=== PATIENT | male | born 1960 | race Caucasian/White ===

== ENCOUNTER 2016-08-22 13:12 | Emergency (ER) | payer BC ==
[2016-08-22] MEDS ORDERED: KETOROLAC TROMETHAMINE 60 MG/2 ML VIAL IM ONE ×2 (14:20→14:34)
--- NOTE | 2016-08-22 14:31 | ERNOTE ---
Upper Extremity HPI - Narrative Date of Service: 08/22/16 - General Extremities Pain Location: thumb: right Time Seen by Provider: 08/22/16 14:07 Source: patient Exam Limitations: no limitations - Immun/Allergies/Home Medications Immunizations: IMMUNIZATION HX Immunizations Up to Date Yes History of Influenza Vaccine Yes Hx Pneumococcal Vaccination No Allergies/Adverse Reactions: Allergies Allergy/AdvReac Type Severity Reaction Status Date / Time No Known Allergies Allergy Verified 08/22/16 13:46 Home Medications: HOME MEDICATIONS ARIPiprazole [Abilify] 5 mg PO DAILY 02/06/15 [Last Taken Unknown] Alprazolam [Alprazolam ER] 4 mg PO HS 02/06/15 [Last Taken Unknown] Desvenlafaxine Succinate [Pristiq] 150 mg PO DAILY 02/06/15 [Last Taken Unknown] Enalapril Maleate [Vasotec] 5 mg PO DAILY 02/06/15 [Last Taken Unknown] Fenofibrate,Micronized [Lofibra] 134 mg PO DAILY 02/06/15 [Last Taken Unknown] Glimepiride [Amaryl] 1 mg PO BID 02/06/15 [Last Taken Unknown] Levetiracetam [Keppra] 1,000 mg PO BID 02/06/15 [Last Taken Unknown] Naltrexone HCl [ReVia] 50 mg PO DAILY 02/06/15 [Last Taken Unknown] Omeprazole [Prilosec] 40 mg PO BID 02/06/15 [Last Taken Unknown] Sucralfate [Carafate] 1 gm PO BID 02/06/15 [Last Taken Unknown] Testosterone Cypionate [Depo-Testosterone] 100 mg IM Q1M 02/06/15 [Last Taken ] Trazodone HCl [Oleptro ER] 150 mg PO HS 02/06/15 [Last Taken Unknown] Rosuvastatin Calcium [Crestor] 20 mg PO DAILY 02/09/15 [Last Taken Unknown] Naproxen [Naprosyn] 500 mg PO BID PRN #60 tab 08/22/16 [Last Taken Unknown] - History of Present Illness Narrative: Pt. comes in with c/o R thumb pain after slamming it in the door of his truck. Pt. denies any SOB, CP, NVD, numbness, or tingling. Pt. denies any prehospital treatment, alleviating or aggravating factors. Review of Systems - Review of Systems Constitutional: Present: no symptoms reported. Absent: recent illness, fever, chills, malaise EYE: Present: no symptoms reported ENT: Present: no symptoms reported Respiratory: Present: no symptoms reported. Absent: shortness of breath, cough , wheezing Cardiology: Present: no symptoms reported. Absent: chest pain, palpitations, edema Gastrointestinal/Abdominal: Present: no symptoms reported Genitourinary: Present: no symptoms reported Musculoskeletal: Present: no symptoms reported. Absent: back pain, joint pain Skin: Present: change in hair/nails - nail discoloration. Absent: rash Neurological: Present: no symptoms reported Endocrine: Present: no symptoms reported All Other Systems: All systems neg except as marked - Patient's Past Medical History Patient History - Medical: Anxiety, Bipolar, Diabetes Type 2, Depression, GERD Patient History - Cardiac/Respiratory: No pertinent hx Patient History - Cancer: No Hx of Cancer Patient History - Surgical Procedures: Colonoscopy, Vasectomy Patient History - Other: None - Family History Mother Family History - Medical: Family History - Cardiac/Respiratory: Hypertension, Myocardial Infarction Father Family History - Medical: Family History - Cardiac/Respiratory: COPD - Social History Living Situations: home Abuse History: No History of abuse Psych History: Hx of Anxiety, Hx of Depression, Current tx/ever been on anti- depressants or anti-anxiety meds Smoking Status: Current every day smoker Have you smoked in the past 12 months: Yes Alcohol Use: occasionally Drug Use: none - Immunizations Immunizations Up to Date: Yes Hx Pneumococcal Vaccination: No History of Influenza Vaccine: Yes Physical Exam - Physical Exam General Appearance: Present: wd/wn, alert, no apparent distress Eye Exam: Normal inspection: bilateral, PERRL: bilateral, EOMI: bilateral Neck: Absent: lymphadenopathy (R), lymphadenopathy (L) Respiratory: Present: no respiratory distress, normal breath sounds, no accessory muscle use, chest nontender, lungs clear Cardiovascular/Chest: Present: regular rate, rhythm, no murmur, normal peripheral pulses Gastrointestinal/Abdominal: Present: normal bowel sounds, nontender, nondistended, soft, no organomegaly Back Exam: Present: normal inspection, normal range of motion, no CVA tenderness , no vertebral tenderness Extremity Exam: Present: normal range of motion, joint redness - R distal thumb , joint swelling - R thumb, other - nail hematoma R prox thumb nail Neurological Exam: Present: alert, oriented, normal mood/affect, no motor/ sensory deficits Skin Exam: Present: warm/dry. Absent: skin rash ED Progress - Date and Time Seen: Date and Time: 08/22/16 16:14 Discussed with Ventura garner and will place in finger splint and give anti- inflammatories and have follow up with orthopedics next week. - Vital Signs Patient's Vital Signs:: I have reviewed the patient's vital signs. Vital Signs: Vital Signs 08/22/16 13:41 Temperature 35.9 C L Pulse Rate 78 Respiratory 16 Rate Blood Pressure 178/97 O2 Sat by Pulse 98 Oximetry - X-Ray X-Ray #1 X-Ray: finger Interpretation: Reviewed by me X-ray Comments: R first digit distal phalynx avulsion fracture. - Progress/Reassessment Chief Complaint: Hand Injury/Pain Departure Clinical Impression: Avulsion fracture - Departure Disposition: Home self-care Condition: Good Instructions: Avulsion Fracture of the Hand Additional Instructions: Please follow up with orthopedics next week by calling to get appointment Referrals: Ventura Garner, PAC [[facility]] - Prescriptions: Naproxen [Naprosyn] 500 mg PO BID PRN #60 tab PRN Reason: Pain
--- OUTSIDE RECORDS SUMMARY | 2016-08-22 14:37 | XMS REPORT | Continuity of Care Document ---
:1960 Author Organization [facility] ([facility]) Address [address] [place] [address] Phone [phone] Care Team Providers Name Role Phone [phone], Need To Check Primary Care Provider Unavailable Source Comments This disclosure is being made pursuant to the Care Everywhere program, applicable federal and state laws, and may not contain all informaitonavailable regarding this patient.[facility] ([facility]) Active Allergies and Adverse Reactions No Known Allergies Current Medications Prescription Sig. Disp. Refills Start Date End Date Status [place]-3 Fatty Take 1,000 mg by Active Acids-Vitamin E (FISH mouth daily. OIL) 1,000 mg Cap multivitamin tablet Take 1 Tab by mouth Active daily. traZODone (DESYREL) 100 Take 100 mg by Active mg tablet mouth at bedtime. glipiZIDE (GLUCOTROL) 5 Take 5 mg by mouth Active mg tablet 2 times daily. fenofibrate 134 mg Take 134 mg by Active capsule mouth every morning before breakfast. rosuvastatin (CRESTOR) Take 20 mg by mouth Active 20 mg tablet daily. omeprazole (PRILOSEC) 20 Take 20 mg by mouth Active mg extended release daily. capsule desvenlafaxine (PRISTIQ) Take 50 mg by mouth Active 50 mg XR tablet daily. meloxicam (MOBIC) 7.5 mg Take 1 Tab by mouth 60 Tab 3 07/12/2010 Active tablet daily. 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 Pulse 69 05/23/2010 3:11 PM DOCUMENTATION WRITER Temperature 35.9 C (96.6 F) 05/23/2010 3:11 PM DOCUMENTATION WRITER Respiratory Rate - - Height 1.815 m (5' 11.46") 05/23/2010 3:11 PM DOCUMENTATION WRITER Weight 99.4 kg (219 lb 2.2 oz) 05/23/2010 3:11 PM DOCUMENTATION WRITER Body Mass Index 30.17 05/23/2010 3:11 PM DOCUMENTATION WRITER Oxygen Saturation - - Plan of Care Health Maintenance Due Date Last Done Comments HCV Screening 1960 Hepatitis B Vaccine (1 of 3 - Primary Series) 1960 Tdap Vaccine 1972 MMR Vaccine 09/19/1979 Td Vaccine 09/19/1979 Colonoscopy 2011 Prostate Cancer Screening 09/19/2011 Lipid Disorder Screening 01/07/2013 01/08/2008 Influenza Vaccine: Seasonal (#1) 01/17/2016 Results from Last 3 Months Not on file
[2016-08-22 16:58] VITALS: BP 148/74
== END 2016-08-22 16:38 | disposition home or self-care (01) ==
LOC: ER 13:12
PROC: 2W3JX1Z Immobilization of Right Finger using Splint (ICD-10-PCS; principal; 2016-08-22)
DX: S62.521A Displaced fracture of distal phalanx of right thumb, initial encounter for closed fracture (principal); X58.XXXA Exposure to other specified factors, initial encounter; Z72.0 Tobacco use; F41.8 Other specified anxiety disorders; E11.9 Type 2 diabetes mellitus without complications

== ENCOUNTER 2016-08-25 14:46 | Emergency (ER) | payer BC ==
[2016-08-25 15:08] VITALS: BP 188/92
--- NOTE | 2016-08-25 15:37 | ERNOTE ---
Upper Extremity HPI - Narrative Date of Service: 08/25/16 - General Extremities Pain Location: thumb: right Time Seen by Provider: 08/25/16 15:33 Source: patient Exam Limitations: no limitations - Immun/Allergies/Home Medications Immunizations: IMMUNIZATION HX Immunizations Up to Date Yes History of Influenza Vaccine Yes Hx Pneumococcal Vaccination No Allergies/Adverse Reactions: Allergies Allergy/AdvReac Type Severity Reaction Status Date / Time No Known Allergies Allergy Verified 08/25/16 15:20 Home Medications: HOME MEDICATIONS ARIPiprazole [Abilify] 5 mg PO DAILY 02/06/15 [Last Taken Unknown] Alprazolam [Alprazolam ER] 4 mg PO HS 02/06/15 [Last Taken Unknown] Desvenlafaxine Succinate [Pristiq] 150 mg PO DAILY 02/06/15 [Last Taken Unknown] Enalapril Maleate [Vasotec] 5 mg PO DAILY 02/06/15 [Last Taken Unknown] Fenofibrate,Micronized [Lofibra] 134 mg PO DAILY 02/06/15 [Last Taken Unknown] Glimepiride [Amaryl] 1 mg PO BID 02/06/15 [Last Taken Unknown] Levetiracetam [Keppra] 1,000 mg PO BID 02/06/15 [Last Taken Unknown] Naltrexone HCl [ReVia] 50 mg PO DAILY 02/06/15 [Last Taken Unknown] Omeprazole [Prilosec] 40 mg PO BID 02/06/15 [Last Taken Unknown] Sucralfate [Carafate] 1 gm PO BID 02/06/15 [Last Taken Unknown] Testosterone Cypionate [Depo-Testosterone] 100 mg IM Q1M 02/06/15 [Last Taken ] Trazodone HCl [Oleptro ER] 150 mg PO HS 02/06/15 [Last Taken Unknown] Rosuvastatin Calcium [Crestor] 20 mg PO DAILY 02/09/15 [Last Taken Unknown] Naproxen [Naprosyn] 500 mg PO BID PRN #60 tab 08/22/16 [Last Taken Unknown] Hydrocodone/Acetaminophen [Lortab 5-325 mg Tablet] 1 each PO QID PRN #14 tablet 08/25/16 [Last Taken Unknown] metFORMIN HCL [Glucophage] 1,000 mg PO BIDWM 08/25/16 [Last Taken Unknown] - History of Present Illness Narrative: 55-year-old white male returns to the ED because of continued right thumb pain and inability to perform work. Patient suffered a crush injury of his right thumb days ago. Was seen and evaluated at this department was diagnosed with fracture. Snoring a splint. 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 He has some pain and some impaired function of his right thumb due to wearing the splint. He is unable to perform his duties at work and therefore will need to be off work. Pain is [id number]. No numbness or tingling. Review of Systems - Review of Systems Constitutional: Present: no symptoms reported Respiratory: Present: no symptoms reported Cardiology: Present: no symptoms reported Musculoskeletal: Present: joint pain, joint swelling Skin: Present: no symptoms reported Neurological: Absent: weakness, numbness, tingling - Patient's Past Medical History Patient History - Medical: Anxiety, Bipolar, Diabetes Type 2, Depression, GERD Patient History - Cardiac/Respiratory: No pertinent hx Patient History - Cancer: No Hx of Cancer Patient History - Surgical Procedures: Colonoscopy, Vasectomy Patient History - Other: None - Family History Mother Family History - Medical: Family History - Cardiac/Respiratory: Hypertension, Myocardial Infarction Father Family History - Medical: Family History - Cardiac/Respiratory: COPD - Social History Living Situations: home Abuse History: No History of abuse Psych History: Hx of Anxiety, Hx of Depression, Current tx/ever been on anti- depressants or anti-anxiety meds Alcohol Use: occasionally Drug Use: none - Immunizations Immunizations Up to Date: Yes Hx Pneumococcal Vaccination: No History of Influenza Vaccine: Yes Physical Exam - Physical Exam General Appearance: Present: wd/wn, alert, no apparent distress Neck: Present: normal inspection Respiratory: Present: no respiratory distress Cardiovascular/Chest: Present: regular rate, rhythm Extremity Exam: Present: normal range of motion, other - the right distal thumb has some ecchymosis swelling and tenderness. It is Norvasc intact. There is a very small subungual hematoma but I do not think that I can drain. Neurological Exam: Present: alert, oriented, no motor/sensory deficits ED Progress - Vital Signs Patient's Vital Signs:: I have reviewed the patient's vital signs. Vital Signs: Vital Signs 08/25/16 15:02 Temperature 37.2 C Pulse Rate 72 Respiratory 16 Rate Blood Pressure 188/92 O2 Sat by Pulse 97 Oximetry - Progress/Reassessment Chief Complaint: Hand Injury/Pain Progress:: Unchanged Plan - Plan Plan: Work and follow-up with orthopedics next Sunday Departure Clinical Impression: Fracture of thumb, right, closed - Departure Disposition: Home self-care Condition: Stable Instructions: Thumb Fracture Additional Instructions: Follow-up with orthopedics as scheduled. Off work. Wear splint. Referrals: Jessica Leigh DO [Primary Care Provider] - Prescriptions: Hydrocodone/Acetaminophen [Lortab 5-325 mg Tablet] 1 each PO QID PRN #14 tablet PRN Reason: Pain
--- OUTSIDE RECORDS SUMMARY | 2016-08-25 16:34 | XMS REPORT | Continuity of Care Document ---
:1960 Author Organization [facility] ([facility]) Address [address] [place] [address] Phone [phone] Care Team Providers Name Role Phone [phone], Need To Check Primary Care Provider Unavailable Source Comments This disclosure is being made pursuant to the Care Everywhere program, applicable federal and state laws, and may not contain all informaitonavailable regarding this patient.[facility] ([facility]) Active Allergies and Adverse Reactions No Known Allergies Current Medications Prescription Sig. Disp. 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
== END 2016-08-25 15:50 | disposition home or self-care (01) ==
LOC: ER 14:46
DX: S62.521D Displaced fracture of distal phalanx of right thumb, subsequent encounter for fracture with routine healing (principal); X58.XXXD Exposure to other specified factors, subsequent encounter

== ENCOUNTER 2016-10-27 08:11 | Day surgery (SDC) | payer BC ==
--- OUTSIDE RECORDS SUMMARY | 2016-10-27 08:15 | XMS REPORT | Continuity of Care Document ---
:1960 Author Organization [facility] ([facility]) Address [address] [place] [address] Phone [phone] Care Team Providers Name Role Phone [phone], Need To Check Primary Care Provider Unavailable Source Comments This disclosure is being made pursuant to the Care Everywhere program, applicable federal and state laws, and may not contain all informaitonavailable regarding this patient.[facility] ([facility]) Active Allergies and Adverse Reactions No Known Allergies Current Medications Prescription Sig. Disp. Refills Start Date End Date Status [place]-3 Fatty Take 1,000 mg by Active Acids-Vitamin [...] Taken Blood Pressure 142/89 05/23/2010 3:11 PM PRODUCT SAFETY EXPERT Pulse 69 05/23/2010 3:11 PM PRODUCT SAFETY EXPERT Temperature 35.9 C (96.6 F) 05/23/2010 3:11 PM PRODUCT SAFETY EXPERT Respiratory Rate - - Height 1.815 m (5' 11.46") 05/23/2010 3:11 PM PRODUCT SAFETY EXPERT Weight 99.4 kg (219 lb 2.2 oz) 05/23/2010 3:11 PM PRODUCT SAFETY EXPERT Body Mass Index 30.17 05/23/2010 3:11 PM PRODUCT SAFETY EXPERT Oxygen Saturation - - Plan of Care [...]
--- NOTE | 2016-10-27 09:03 | OR ---
Anesthesia Pre Procedure Eval Pre Procedure Evaluation: Last Vital Signs Temp 36.4 C L 10/27/16 08:18 Pulse 64 10/27/16 08:18 Resp 16 10/27/16 08:18 BP 136/78 10/27/16 08:18 Pulse Ox 99 10/27/16 08:18 PRE PROCEDURE EVALUATION:: DATE: 10/27/2016 TIME: 08 50 INDICATIONS: Bulging disc L4 5. Radicular low back pain. PAST MEDICAL HISTORY: Patient has had epidural steroid injections in the past. The last approximately 2 years ago. EXAM: Lungs clear and equal. Heart rate regular. Patient complains of low back pain radiating into the hips bilaterally. ASSESSMENT OF MEDICAL STATUS: Procedure risks and benefits were explained to and accepted by the patient. No contraindication to epidural steroid injection. PLANNED PROCEDURE : Fluoroscopy-guided epidural steroid injection at L4 5 Home Medications: HOME MEDICATIONS Alprazolam [Alprazolam ER] 4 mg PO HS 02/06/15 [Last Taken Unknown] Desvenlafaxine Succinate [Pristiq] 100 mg PO DAILY 02/06/15 [Last Taken Unknown] Enalapril Maleate [Vasotec] 5 mg PO DAILY 02/06/15 [Last Taken Unknown] Fenofibrate,Micronized [Lofibra] 134 mg PO DAILY 02/06/15 [Last Taken Unknown] Glimepiride [Amaryl] 1 mg PO BID 02/06/15 [Last Taken Unknown] Omeprazole [Prilosec] 40 mg PO BID 02/06/15 [Last Taken Unknown] Sucralfate [Carafate] 1 gm PO BID 02/06/15 [Last Taken Unknown] levETIRAcetam [Keppra] 1,000 mg PO BID 02/06/15 [Last Taken Unknown] traZODone HCL [Oleptro ER] 150 mg PO HS 02/06/15 [Last Taken Unknown] Rosuvastatin Calcium [Crestor] 20 mg PO DAILY 02/09/15 [Last Taken Unknown] Aspirin [Aspirin Enteric Coated] 81 mg PO DAILY 10/26/16 [Last Taken Unknown] Blood-Glucose Meter [Blood Glucose Monitoring] 1 each MC BID 10/26/16 [Last Taken Unknown] Desvenlafaxine Succinate [Pristiq] 50 mg PO DAILY 10/26/16 [Last Taken Unknown] Ibuprofen [Motrin] 1,000 mg PO Q2D 10/26/16 [Last Taken Unknown] [place]-3 Fatty Acids [[place]-3 1000 MG] 1 cap PO DAILY 10/26/16 [Last Taken Unknown] Promethazine HCl [Phenergan] 25 mg PO QID PRN 10/26/16 [Last Taken Unknown] Testosterone Cypionate [Depo-Testosterone] 100 mg IM Q14D 10/26/16 [Last Taken Unknown]
[2016-10-27] MEDS ORDERED: IOPAMIDOL 20 ML VIAL IJ ONE (09:20)
[2016-10-27] MEDS ORDERED: DEXAMETHASONE SOD PHOSPHATE 10 MG/ML VIAL IJ ONE (09:20)
[2016-10-27] MEDS ORDERED: LIDOCAINE HCL/PF 5 ML VIAL IJ ONE (09:20)
--- NOTE | 2016-10-27 09:33 | OR ---
Anesthesia Procedure Note - Anesthesia Procedure Note Narrative: Vital Signs - Last Taken Temp 36.4 C L 10/27/16 08:18 Pulse 61 10/27/16 09:15 Resp 18 10/27/16 09:15 BP 129/85 10/27/16 09:15 Pulse Ox 96 10/27/16 09:15 O2 Oxygen Delivery Method Room Air 10/27/16 09:28 ANESTHESIA PROCEDURE NOTE Date of Procedure: 10/27/2016 Time of procedure: 03 02. Performed by: Peyman Gardner CRNA Customer Contact Specialist: None. Preprocedure diagnosis: Bulging disc L4 5 radicular low back pain. Post procedure diagnosis: Same. Procedure: Epidural Steroid Injection at L4 5. Indications: Radicular low back pain. Findings: See below. Details of the procedure: The patient was brought back to operative #3. The patient was then placed in the prone position. Back was prepped with DuraPrep. Patient was then draped in sterile fashion. Lidocaine 1% was infiltrated to the skin and subcutaneous tissues at the level of the L4 5 interspace. The epidural space was identified using a 20-gauge Tuohy needle with loss-of- resistance technique and fluoroscopic guidance. A total of 3 mL of Isovue-200 contrast dye was injected in a first the AP and lateral positions to confirm needle placement. Dexamethasone 10 mg + 5 mL of 1% preservative-free lidocaine was administered to the epidural space after negative aspiration for blood and CSF. The Tuohy needle was removed intact. A Band-Aid was applied to the patient's back. The patient was then placed in a supine position for 5 minutes before returning to the ambulatory surgical unit. A total of 24.8 seconds of fluoroscopy time was used. Total dose 11.93 m/gy. EBL: Minimal. Fluids: N/A. Specimen: N/A. Post procedure condition: The patient tolerated the procedure well. No complications were noted. Thank you for this consultation. Peyman Gardner CRNA
[2016-10-27 10:03] VITALS: BP 135/66
== END 2016-10-27 08:12 | disposition home or self-care (01) ==
LOC: AMB 08:11
PROVIDERS: ATTEND Internal Medicine
PROC: 3E0S3BZ Introduction of Anesthetic Agent into Epidural Space, Percutaneous Approach (ICD-10-PCS; 2016-10-27)
PROC: 3E0S33Z Introduction of Anti-inflammatory into Epidural Space, Percutaneous Approach (ICD-10-PCS; principal; 2016-10-27 09:00)
DX: M51.26 Other intervertebral disc displacement, lumbar region (principal)